=== PATIENT | female | born 1935 | race Caucasian/White ===

== ENCOUNTER 2017-02-04 10:30 | Day surgery (SDC) | payer MEDICARE, OTHER ==
[~2017-02-04 10:30] MED LIST: ALBU1AER INH; AMLO2.5T PO; CLOP75TA PO; DIOV160T60 PO; HYDR-3580 PO; IBUP800 PO; LEVO75TA3 PO; LORA2TAB PO; SERT-129 PO
[2017-02-04] MEDS ORDERED: HYDR-3534 PO (11:28)
[2017-02-04] MEDS ORDERED: PRAV20TA2 PO (11:28)
[2017-02-04] MEDS ORDERED: LEVO75TA3 PO (11:28)
[2017-02-04] MEDS ORDERED: LORA1TAB12 PO (11:28)
[2017-02-04] MEDS ORDERED: AMLO5TAB2 PO (11:28)
[2017-02-04] MEDS ORDERED: FURO20TA PO (11:28)
[2017-02-04] MEDS ORDERED: AMLO5 PO (11:28)
[2017-02-04] MEDS ORDERED: CLOP75TA PO (11:28)
[2017-02-04] MEDS ORDERED: CIME400T PO (11:28)
[2017-02-04] MEDS ORDERED: SERT-129 PO (11:28)
[2017-02-04] MEDS ORDERED: DIOV160T6 PO (11:28)
[2017-02-04] MEDS ORDERED: LOVA20TA PO (11:28)
[2017-02-04] MEDS ORDERED: VALS1TAB65 PO (11:28)
[2017-02-04] MEDS ORDERED: NS 1000 ML IV SCH (11:30)
[2017-02-04] MEDS ORDERED: ceFAZolin 2 GM PREMIX 50 ML IV SCH (11:30)
[2017-02-04] MEDS ORDERED: NO Heparin, Lovenox, Coumadin at least 12 hours prior to procedure. PRN (11:30)
[2017-02-04] MEDS ORDERED: POVIDONE IODINE 5% (ANTISEPSIS KIT) 4 APPLICATIONS EACH NARE SCH (11:30)
[2017-02-04] MEDS ORDERED: CHLORHEXIDINE GLUCONATE 2 % 1 PACK (2 CLOTHS) TOPICAL SCH (11:30)
[2017-02-04] MEDS ORDERED: MUPIROCIN 2% OINT 1 APPLIC/GM SYR NASAL SCH (11:30)
[2017-02-04] MEDS ORDERED: MIDAZOLAM HCL 5 MG/5 ML VIAL ONE (12:19)
--- NOTE | 2017-02-04 12:57 | MA ---
cc: NARENDRA CASTILLO MD DATE 02/04/2017 PROCEDURE PERFORMED Loop recorder insertion PERFORMING PHYSICIAN Dr. Narendra Castillo PROCEDURE PERFORMED 1. 15 minutes of mild IV sedation. 2. Loop recorder insertion. DESCRIPTION OF PROCEDURE After informed consent was obtained, the patient was brought to the DOC unit in the postabsorptive state. 2 mg of Versed and 25 mg of fentanyl was given for moderate IV sedation. Next, a Q-Sensei LINQ loop recorder was inserted subcutaneously in the left chest. The patient tolerated procedure well without any apparent complications. Tachybrady pause and atrial fibrillation detection was enabled. The initial R-wave was 0.19 mV but with a good signal and I suspected it likely would improve once lidocaine had been fully absorbed so I elected not to reposition. The serial number was [id number]. MD ZAINAB Sal/ZACHERY /12:36 PM /12:51 PM
== END 2017-02-04 14:45 | disposition home or self-care (01) ==
LOC: HDIC 10:30 → HDOC 10:30
PROVIDERS: ATTEND Nuclear Medicine Nuclear Cardiology
DX: I63.9 Cerebral infarction, unspecified (principal); I45.10 Unspecified right bundle-branch block; I77.9 Disorder of arteries and arterioles, unspecified
CPT/HCPCS: 33282; 99152; C1764; J0690; J2250; J3010

== ENCOUNTER 2017-04-20 09:13 | Day surgery (SDC) | payer MEDICARE, OTHER ==
[~2017-04-20] VITALS: Ht 157.5 cm; Wt 81.4 kg
[~2017-04-20 09:13] MED LIST changes: -ALBU1AER INH; -AMLO2.5T PO; +AMLO5 PO; +AMLO5TAB2 PO; +CIME400T PO; +DIOV160T6 PO; -DIOV160T60 PO; +FURO20TA PO; +HYDR-3534 PO; -HYDR-3580 PO; -IBUP800 PO; +LORA1TAB12 PO; -LORA2TAB PO; +LOVA20TA PO; +PRAV20TA2 PO; +VALS1TAB65 PO
[2017-04-20] MEDS ORDERED: IOHEXOL 350 MG/ML 100 ML BTL (for Cath Lab) OTHER ONE (09:14)
[2017-04-20 09:30] VITALS: BP 169/63; PULSE 80; RESP 18; TEMP 98.4; O2SAT 96
[2017-04-20] MEDS ORDERED: NS 1000P @30 MLS/HR (KVO) IV SCH (10:00)
[2017-04-20 10:17] LABS: AUTOMATED NEUTROPHIL # 7.8 TH/MM3 (1.8-7.7); BASOPHIL # 0.1 TH/MM3 (0-0.2); BASOPHIL % 1.2 % (0.0-2.0); EOSINOPHIL # 0.2 TH/MM3 (0-0.4); EOSINOPHIL % 1.9 % (0.0-4.0); HEMATOCRIT 34.1 % (35.0-46.0); LYMPH % 17.2 % (9.0-44.0); LYMPHOCYTE # 1.8 TH/MM3 (1.0-4.8); MEAN CELL VOLUME 87.4 FL (80.0-100.0); MEAN CORPUSCULAR HEMOGLOBIN 30.8 PG (27.0-34.0); MEAN CORPUSCULAR HGB CONC 35.3 % (32.0-36.0); MEAN PLATELET VOLUME 7.8 FL (7.0-11.0); MONO % 6.9 % (0.0-8.0); MONOCYTE # 0.7 TH/MM3 (0-0.9); NEUT % 72.8 % (16.0-70.0); PLATELET COUNT 339 TH/MM3 (150-450); RED CELL DISTRIBUTION WIDTH 15.8 % (11.6-17.2); WHITE BLOOD COUNT 10.7 TH/MM3 (4.0-11.0)
[2017-04-20 10:29] LABS: INTERNATIONAL NORMALIZED RATIO 1.1 RATIO; PROTHROMBIN TIME - PATIENT 10.9 SEC (9.8-11.6)
[2017-04-20 10:42] LABS: BICARBONATE 25.3 MEQ/L (21.0-32.0); CALCIUM 8.7 MG/DL (8.5-10.1); CREATININE 1.03 MG/DL (0.50-1.00)
[2017-04-20] MEDS ORDERED: CARB25TA9 PO (11:37)
[2017-04-20] MEDS ORDERED: ATOR40TA16 PO (11:37)
[2017-04-20] MEDS ORDERED: DILT-8 PO (11:37)
[2017-04-20] MEDS ORDERED: APIX5TAB PO (11:37)
[2017-04-20] MEDS ORDERED: DILT240C44 PO (11:37)
[2017-04-20] MEDS ORDERED: HYDR-3580 PO (11:37)
--- NOTE | 2017-04-20 12:12 | EKG ---
Date Performed: 04/20/2017 Time Performed: 09:57:22 PTAGE: 82 years EKG: Sinus rhythm . Left axis deviation RBBB with left anterior fascicular block Abnormal ECG PREVIOUS TRACING : 09/03/1997 12.53 DOCTOR: Vipul Suresh Interpretating Date/Time 04/20/2017 12:10:55
[2017-04-20] MEDS ORDERED: HEPARIN-NS/PF INJ 1,000 ML ONE ×2 (12:41→13:06)
[2017-04-20] MEDS ORDERED: MIDAZOLAM HCL 2 MG/2 ML VIAL ONE (12:41)
[2017-04-20] MEDS ORDERED: VERAPAMIL HCL 5 MG/2 ML VIAL ONE (12:41)
[2017-04-20] MEDS ORDERED: HEPARIN SODIUM - IV 10,000 UNITS/10 ML VIAL ONE (12:42)
[2017-04-20] MEDS ORDERED: NITROGLYCERIN INJ 5 ML ONE (12:42)
--- NOTE | 2017-04-20 13:31 | CATHPROC ---
[employer] HIS Report Study Information Study Number Admission Scheduled Start Study Start [id number] Apr 20 2017 9:13AM 04/20/2017 04/20/2017 [place] [facility] Cardiac Catheterization Admit Source Facility Department Other [facility] - Ict Customer Support Officer Physician and Clinical Staff Initial Graeme Grigsby Assembler Clip On Sunglasses Georgia Clayton BSN Recorder Artemio Agrawal,RT(R) Recorder Mariluz PereyraRT(R) Recorder Mario Isaac,RT(R) Scrub Carlos Mahmood RCIS(BS) Procedures Performed Procedure Location (Site) Vessel Name Coronary Angiograms LCA Left Coronary Coronary Angiograms RCA Right Coronary L Heart Cath Wire insertion Radial (right) Radial Art. Equipment Time Strap Sewer Description Size Mfg Part Number Used/Scraped TRANSDUCER, TRUWAVE [id number] 12:51 HIDALGO MELENDEZ * Used W/STOCKCOCK *[id number] *[id number] *[id number] WIRE, HYDROSTEER 150CM [id number] 12:55 DAIG/[employer]. [employer] 150CM Used ANGLED GLIDE *[id number] 12:51 [employer] PACK, CCL CUSTOM * Used *[id number] 12:51 [employer] SUPPORT, ARTERIAL ADULT 86864 *[id number] Used BAND, RADIAL COMPRESSION TR [id number] 13:20 [employer] MEDICAL 24CM Used SHORT 24 *[id number] 12:51 [employer] WIRE, EXCHANGE 260CM 3MMJ 260CM Used *[id number] 12:51 NAMIC MANIFOLD, 4 PORT * Used *[id number] 12:51 NYCOMED OMNIPAQUE, 350 MG, 150ML 150ML [id number] Used [id number] 12:51 [employer]IN Onit BLANKET,WARM AIR CCL * Used *[id number] SHEATH, FR6 TRANSRADIAL [id number] 12:51 [employer] MEDICAL FR 6 Used SLENDER 10CM *[id number] Equipment Model, Serial, Lot Number and Expiration Data Description Model Number Serial Number Lot Number Expiration Date WIRE, HYDROSTEER 150CM [id number] 12-17-2019 ANGLED GLIDE History: Current Medications Medication Dosage/Unit Route Frequency Last Date/Time Taken Statins (any) ATIVAN ELIQUIS History: Allergies Allergy Reaction No Known Allergies History: Risk Factors Family History of Hypertension Dyslipidemia Previous OH Previous Heart Failure Premature CAD Yes Yes No Yes Yes Prior Valve Prior PCI Prior CABG Surgery No No No Cerebrovascular Peripheral Artery Chronic Lung On Dialysis Diabetes Disease Disease Disease No Yes No Yes No History: Symptoms/Diagnosis Selection Items Chest pain SOB History: Stress Tests Stress or Imaging Studies Performed No History: Other Disease Selection Items COPD HTN History: Other Current Smoker Method Quit Packs a Day Years Used Pack Years No Cigarettes 25 Years Ago 1 15 15 Labs Hgb (g/dl) Hct (%) RBC (MIL/MM3) WBC (l/cumm) Platelets (thousands) 11.60-17.00 35.00-51.00 4.00-5.90 4.00-11.00 150.00-450.00 12.0 34.1 3.9 10.7 229 Glucose (mg/dl) BUN (mg/dl) Creatinine (mg/dl) BUN:Creatinine (1:x) 74.00-106.00 7.00-18.00 0.50-1.30 10.00-20.00 113 18 1.0 18 Na (meq/l) K (meq/l) Cl (meq/l) CO2 (mmol/L) Ca (mg/dl) 136.00-145.00 3.50-5.10 98.00-107.00 21.00-32.00 8.50-10.10 140 4.2 106 25.3 8.7 PT (sec) PTT (sec) INR (PTT:PT) 9.80-11.60 24.30-30.10 0.90-1.10 10.9 25.3 1.1 CPK-MB (ng/ML) 0.50-3.60 Not Drawn Medication Medication Total Dose (Bolus/Oral) Medication Total Dosage/Unit FENTANYL 25 mcg RADIAL COCKTAIL 5 mL (Bolus) VERSED 0.5 mg Medications (Bolus/Oral) Medication Time Given Dosage/Unit Administered By Reason VERSED 04/20/2017 12:52:46 PM 0.5 mg Georgia Clayton 0.5 mg VERSED given in lab by Georgia Clayton BSN in Right Forearm via Peripheral IV. FENTANYL 04/20/2017 12:52:56 PM 25 mcg Georgia Clayton 25 mcg FENTANYL given in lab by Georgia Clayton BSN in Right Forearm via Peripheral IV. Ntg 200mcg Verapamil 2.5mg Heparin RADIAL COCKTAIL 04/20/2017 12:54:22 PM 5 mL (Bolus) Georgia Clayton 3000U 5 mL (Bolus) RADIAL COCKTAIL given in lab by Georgia Clayton BSN via Radial. Using [Solution Nam e]. Reason: Ntg 200mcg Verapamil 2.5mg Heparin 3300U. Medication (Drip) Medication Time Given Dosage/Unit Concentration/Unit Diluent (ml) Solution IV Solutions 04/20/2017 12:41:38 PM 0 mL (IV) 500 NaCl .9 IV Solutions given in lab by Georgia Clayton BSN in Right Forearm via Peripheral IV. Pump/Drip F low = 20 ml/hr using NaCl .9. Initial Case Assessment Cardiovascular HR Rhythm NIBP Chest Pain 74 Sinus 158/72 0 Edema Present Skin color Skin None Normal Warm Dry Circulatory - Right Pulses Dorsalis Pedis Femoral Radial 2 2 2 Scale (0,1,2,3,4,d) Scale (0,1,2,3,4,d) Neurological State Oriented to time-place- Alert Moves all extremities person Respiration - General Respiration Rate SpO2 (%) O2 (lpm) (B/min) 18 95 0 Final Case Assessment Cardiovascular HR Rhythm NIBP Chest Pain 70 Sinus 130/55 0 Edema Present Skin color Skin None Normal Warm Dry Circulatory - Right Pulses Dorsalis Pedis Femoral Radial 2 2 2 Scale (0,1,2,3,4,d) Scale (0,1,2,3,4,d) Neurological State Oriented to time-place- Alert Moves all extremities person Respiration - General Respiration Rate SpO2 (%) O2 (lpm) (B/min) 17 99 2 Chronological Log Time Study Chronological Log 12:23:46 Patient arrived via Bed. 12:23:47 Patient Name, D.O.B, / Armband Verified By R.N. 12:23:48 Consent signed by the physician and the patient and verified by the Ict Customer Support Officer staff. 12:23:49 Pre-op and post- op instructions given; patient acknowledges understanding of instructions. 12:35:13 Verbal Stimulation=2 Physical Stimulation=2 Airway=2 Respiration=2 TOTAL=8. (0=absent, 1=li mited, 2=present) 12:35:26 Patient has been NPO for More than 6Hrs. 12:35:30 Skin Breakdown-scab wound present on left upper arm 12:41:31 Patient Warmer Placed on the Table. 12:41:33 Jacqueline Prominences Protected 12:41:34 A # 20 IV was noted in the Forearm (right). Grade = 0 Started in lab by Georgia. IV Solutions given in lab by Georgia Clayton BSN in Right Forearm via Peripheral IV. Pump/ Drip Flow = 20 ml/hr 12:41:38 using NaCl .9. 12:41:39 History and physical on the chart or being dictated. Assessment: Initial Case, HR=74 BPM, Rhythm=Sinus, XGQB=599/72 mmhg, Chest Pain=0, Edema=None, Color=Normal, Skin = Warm, Dry 12:41:40 Right Pulses: Avelino Ped=2, Femoral=2, Radial=2 Neurological: State=Alert, Ox3, GONSALEZ Respiration: Resp=18 B/min, SpO2=95 %, O2=0 lpm Vitals capture started with the following parameters, Patient=Adult, Interval=5 min, Initial Pr nydqkr=243 mmHg, 12:41:42 Deflation Rate=5 mmHg, Cuff placed on Left Arm 12:41:48 Right Radial and groin(s) prepped with 2% chlorhexidine, and draped after a 3 min. waiting time. 12:42:20 HR=74 bpm, GPDS=016/72 mmhg, SpO2=96.0 %, Resp=14 B/min, Pain=0, Jessica=10, Linares=2 12:43:48 Reference ECG taken 12:45:15 MD paged 12:46:22 Pressure channel 1 zeroed. 12:47:21 HR=73 bpm, CLJB=413/73 mmhg, SpO2=95.0 %, Resp=20 B/min, Pain=0, Jessica=10, Linares=2 12:49:20 MD arrived. Time Out. Correct patient, correct procedure, correct physician, power injector loaded, or not loaded with contrast with 12:51:16 surgical team present. Time Out Concurred by MD and individual staff in procedure. 12:52:04 Case Start 12:52:20 HR=76 bpm, KIIF=510/66 mmhg, SpO2=95.0 %, Resp=22 B/min, Pain=0, Jessica=10, Linares=2 12:52:46 0.5 mg VERSED given in lab by Georgia Clayton BSN in Right Forearm via Peripheral IV. 12:52:56 25 mcg FENTANYL given in lab by Georiga Clayton BSN in Right Forearm via Peripheral IV . 12:53:44 Access site was Radial Artery. A SHEATH, FR6 TRANSRADIAL SLENDER 10CM FR 6 was advanced into the Radial (right) using the Perc utaneous 12:53:46 technique. 5 mL (Bolus) RADIAL COCKTAIL given in lab by Georgia Clayton BSN via Radial. Using [Solorlando on Name]. Reason: 12:54:22 Ntg 200mcg Verapamil 2.5mg Heparin 3300U. 12:55:48 A WIRE, HYDROSTEER 150CM ANGLED GLIDE 150CM was inserted via Radial (right). A JR 4.0 INFINITI CATHETER FR 5 was advanced over a wire. OMNIPAQUE, 350 MG, 150ML 150ML was us ed for 12:57:14 injections. 12:57:25 HR=80 bpm, UFOB=071/54 mmhg, SpO2=91.0 %, Resp=25 B/min, Pain=0, Jessica=10, Linares=2 Recorded Pressure: LV, HR=78, Condition=Condition 1 12:57:45 (Left Ventricle) LV 117/0/3 Recorded Pressure: LV, Ao, HR=77, Condition=Condition 1 12:57:54 (Left Ventricle) LV 114/-1/4, (Aorta) Ao 119/52/80 Recorded Pressure: Ao, HR=76, Condition=Condition 1 12:58:26 (Aorta) Ao 115/51/77 12:59:10 The RCA was injected and visualized at various angles. OMNIPAQUE, 350 MG, 150ML 150ML used . 13:02:18 HR=78 bpm, UAUE=095/60 mmhg, SpO2=89.0 %, Resp=17 B/min, Pain=0, Jessica=10, Linares=2 After removing the current catheter a JL 3.5 INFINITI CATHETER FR 5 was advanced over a WIRE, EXCHANGE 260CM 13:02:27 3MMJ 260CM. 13:04:14 The LCA was injected and visualized at various angles. OMNIPAQUE, 350 MG, 150ML 150ML use d. 13:07:19 HR=75 bpm, EOXV=348/61 mmhg, SpO2=97.0 %, Resp=16 B/min, Pain=0, Jessica=10, Linares=2 13:12:20 HR=71 bpm, QWHJ=825/57 mmhg, SpO2=96.0 %, Resp=15 B/min, Pain=0, Jessica=10, Linares=2 13:17:19 HR=73 bpm, JBFB=117/57 mmhg, SpO2=96.0 %, Resp=17 B/min, Pain=0, Jessica=10, Linares=2 13:18:21 A WIRE, EXCHANGE 260CM 3MMJ 260CM was inserted via Radial (right). 13:19:16 Catheter was removed 13:19:23 Wire removed 13:20:45 Case End Radial Compression Device Used. 12 mLs of air placed in BAND, RADIAL COMPRESSION TR SHORT 24 2 4CM. Affected 13:21:31 hand 99 % O2 saturation. 13:22:02 No case complications noted. 13:22:02 Cine recording checked. 13:22:20 HR=71 bpm, NJBS=606/59 mmhg, SpO2=98.0 %, Resp=20 B/min, Pain=0, Jessica=10, Linares=2 13:22:51 Bedside Report will be given. 13:27:21 HR=70 bpm, EISO=799/55 mmhg, SpO2=98.0 %, Resp=17 B/min, Pain=0, Jessica=10, Linares=2 13:28:06 Vitals capture stopped. Assessment: Final Case, HR=70 BPM, Rhythm=Sinus, TWDT=085/55 mmhg, Chest Pain=0, Edema=None, Color=Normal, Skin = Warm, Dry 13:28:19 Right Pulses: Avelino Ped=2, Femoral=2, Radial=2 Neurological: State=Alert, Ox3, GONSALEZ Respiration: Resp=17 B/min, SpO2=99 %, O2=2 lpm 13:29:56 Bedside Report will be given. 13:30:00 A Left Heart Cath was performed. 13:30:05 Patient moved to stretcher End Study - Contrast Media Used In Study Contrast Total Opened (mL) Total Used (mL) Total Wasted (mL) Omnipaque 150 60 90 End Study - Maximum Contrast Load Max Contrast Load (mL) 407.0 End Study - Radiation Exposure Fluoro Time (minutes) 4.9 End Study - Patient Disposition Complications Transferred To Interventional Outcome No Outpatient Bed No attempt made
[2017-04-20] MEDS ORDERED: METO25TA3 PO (13:34)
[2017-04-20] MEDS ORDERED: MISC INFORMATION XX ONE (13:45)
--- NOTE | 2017-04-21 15:25 | MA ---
cc: GRAEME SCHAEFFER DO DATE: April 20, 2017 PROCEDURE Left heart catheterization, coronary angiogram, moderate sedation 30 minutes. PREPROCEDURE DIAGNOSIS Shortness of breath, peripheral artery disease. POSTPROCEDURE DIAGNOSIS Coronary artery disease with overall small vessel disease. MEDICATIONS 1. Versed 0.5 mg. 2. Fentanyl 25 mcg. 3. Heparin 3300 units. 4. Nitro 200 mcg. 5. Verapamil 2.5 mg. CONTRAST USED 60 ccs. FLUOROSCOPY 4.9 minutes. SEDATION Moderate sedation 30 minutes. ESTIMATED BLOOD LOSS 10 ccs. PROCEDURAL SUMMARY Sakshi Elias is a pleasant 82-year-old female who sees my partner Dr. Castillo in the office and was recommended cardiac catheterization due to chest pain and shortness of breath. Risks, benefits and alternatives were explained to her and she consented as such. She was brought to the lab and prepped in the usual sterile fashion. Right radial artery was accessed using a modified Seldinger technique and placement of a 5/6 Scottish slender sheath. This was easily aspirated and flushed. A JR-4 was advanced over a Glidewire to the ascending aorta and across the aortic valve for measurement of left ventricular pressure. This was pulled back across the aortic valve showing no significant gradient of aortic stenosis. JR-4 was used for selective angiography of the right coronary artery system. This was exchanged out for a JL-3.5 which was used for selective angiography of the left coronary artery system. JL-3.5 was removed over a J-wire. The radial band was placed over the arteriotomy site for hemostasis. The patient left the laborer sawmill cardiovascularly stable. FINDINGS Left main. Normal size vessel. No significant disease. It bifurcates into an LAD and circumflex. LAD. Normal-size vessel with mild tortuosity throughout. It gives off one major diagonal which is overall small vessel at 1-1/2 mm with a 70% lesion in the midportion. Left circumflex. Large vessel overall. It gives off three obtuse marginals which have overall tortuosity and possibly some myocardial bridging. But no significant disease. Right coronary artery. Overall small vessel which does supply a small PDA which is most likely codominant in nature. Has tandem 90% lesions. LVEDP 4. IMPRESSION 1. Coronary artery disease as above with overall small vessel disease. 2. Previous chest pain, although no recent episodes. 3. Shortness of breath which appears somewhat chronic in nature. 4. Probable peripheral artery disease. RECOMMENDATIONS 1. Ms. Elias presented with previous chest pain, although she has had no recent episodes. She was found to have small vessel disease specifically with a diagonal of 1.5 mm and an RCA of probable 2 mm with an overall long area of disease. 2. She has not been started on any antianginal medications and I would start with that first to see if it helps her overall shortness of breath. 3. She will also be placed on a nebulizer per her primary care physician. 4. If in the next few weeks she continues to have chest pain or shortness of breath, we will consider fixing her RCA, although she understands that this is a relatively small vessel and overall very long lesion and would require a long stent. Thank you for allowing me to see Sakshi Elias. If there are any questions please do not hesitate to call. Graeme Schaeffer DO VGP/TLL /1:52 PM /2:45 PM
== END 2017-04-20 17:05 | disposition home or self-care (01) ==
LOC: HDIC 09:13 → HDOC 09:13
PROVIDERS: ATTEND Nuclear Medicine Nuclear Cardiology
DX: I25.10 Atherosclerotic heart disease of native coronary artery without angina pectoris (principal); I10 Essential (primary) hypertension; I25.2 Old myocardial infarction; I73.9 Peripheral vascular disease, unspecified; E78.5 Hyperlipidemia, unspecified; R94.30 Abnormal result of cardiovascular function study, unspecified; F41.9 Anxiety disorder, unspecified; Z79.01 Long term (current) use of anticoagulants
CPT/HCPCS: 80048; 85025; 85610; 85730; 93005; 93458; C1769; C1893; J1644; J2250; J3010; Q9967